=== PATIENT | male | born 1990 | race Caucasian/White ===

== ENCOUNTER 2020-09-05 10:06 | Emergency (ER) | payer MEDICAID, OTHER ==
[~2020-09-05] VITALS: Ht 175.3 cm; Wt 81.3 kg
[2020-09-05 10:19] VITALS: BP 150/95
--- NOTE | 2020-09-05 10:27 | NUR ---
Patient given discharge instructions and they have confirmed that they understand the instructions. Patient ambulatory with steady gait.
== END 2020-09-05 10:31 | disposition home or self-care (01) ==
LOC: ED 10:20
DX: B34.9 Viral infection, unspecified (principal); Z20.828 Contact with and (suspected) exposure to other viral communicable diseases; J02.9 Acute pharyngitis, unspecified; M79.10 Myalgia, unspecified site; R51.9 Headache, unspecified; R50.9 Fever, unspecified
CPT/HCPCS: 87635; 99283